=== PATIENT | male | born 1940 | race Caucasian/White ===

== ENCOUNTER 2017-06-22 11:29 | Day surgery (SDC) | payer OTHER ==
[2017-06-22] MEDS ORDERED: PROPOFOL 40 ML (13:41)
== END 2017-06-23 08:32 | disposition home or self-care (01) ==
LOC: GIL 11:29
DX: D12.6 Benign neoplasm of colon, unspecified (principal); K64.8 Other hemorrhoids; I10 Essential (primary) hypertension; E78.5 Hyperlipidemia, unspecified
CPT/HCPCS: 45380; 88305

== ENCOUNTER 2018-02-16 16:22 | Emergency (ER) | payer OTHER ==
[2018-02-16] MEDS: ACETAMINOPHEN 500 MG TAB PO (19:22)
== END 2018-02-16 19:59 | disposition home or self-care (01) ==
LOC: FTE 16:22
DX: J02.9 Acute pharyngitis, unspecified (principal); I10 Essential (primary) hypertension; Z79.82 Long term (current) use of aspirin
CPT/HCPCS: 93005; 99283; 99283-25